=== PATIENT | male | born 1995 | race Caucasian/White ===

== ENCOUNTER 2016-03-27 17:12 | Emergency (ER) | payer BC ==
[2016-03-27] MEDS ORDERED: Ibuprofen TAB* 600 MG PO ONE (17:20)
[2016-03-27 17:23] VITALS: BP 121/67
--- NOTE | 2016-03-27 17:25 | UC ---
Shoulder Pain HPI - HPI Summary HPI Summary: Patient was snowboarding, fell and landed on left shoulder. ROM is limited due to pain - History of Current Complaint Stated Complaint: LT SHOULDER INJURY Time Seen by Provider: 03/27/16 17:20 Hx Obtained From: Patient Onset/Duration: Sudden Onset, Lasting Minutes - 60 Timing: Constant Severity Initially: Moderate Severity Currently: Moderate Location Of Pain: Is Discrete @ - right shoulder Character: Sharp, Spasmodic, Stiffness Aggravating Factor(s): Movement Alleviating Factor(s): Nothing - Allergies/Home Medications Allergies/Adverse Reactions: Allergies Allergy/AdvReac Type Severity Reaction Status Date / Time No Known Allergies Allergy Verified 03/27/16 17:23 Home Medications: Home Medications NK [No Home Medications Reported] 03/27/16 [History Confirmed 03/27/16] PMH/Surg Hx/FS Hx/Imm Hx Previously Healthy: Yes - Family History Family History: neg HTN or CAD Review of Systems Constitutional: Negative Skin: Negative Eyes: Negative ENT: Negative Respiratory: Negative Cardiovascular: Negative Gastrointestinal: Negative Genitourinary: Negative Motor: Negative Neurovascular: Negative Musculoskeletal: Arthralgia, Decreased ROM, Myalgia Neurological: Negative Psychological: Negative All Other Systems Reviewed And Are Negative: Yes Physical Exam Triage Information Reviewed: Yes Appearance: Well-Appearing, Well-Nourished, Pain Distress Vital Signs Reviewed: Yes Eye Exam: Normal Eyes: Positive: Conjunctiva Clear ENT Exam: Normal ENT: Positive: Normal ENT inspection, Pharynx normal, TMs normal Dental Exam: Normal Neck exam: Normal Neck: Positive: Supple, Nontender, No Lymphadenopathy Respiratory Exam: Normal Respiratory: Positive: Chest non-tender, Lungs clear, Normal breath sounds Cardiovascular Exam: Normal Cardiovascular: Positive: RRR, No Murmur, Pulses Normal Abdominal Exam: Normal Abdomen Description: Positive: Nontender, No Organomegaly, Soft Bowel Sounds: Positive: Present Musculoskeletal: Positive: Strength Limited @, ROM Limited @ - in left shoulder , Other: - noticeable step off deformity on left shoulder. tender over AC joint , sensation, color and movement of elbow wrist and fingers intact Neurological Exam: Normal Neurological: Positive: Alert Psychological Exam: Normal Skin Exam: Normal Shoulder Course/Dx - Course Course Of Treatment: hx obtained, exam performed, xray positive for AC joint separation, no fracture, no dislocation, ibuprofen given for pain with ogood results - Differential Dx/Diagnosis Differential Diagnosis/HQI/PQRI: Contusion, Dislocation, Sprain, Strain Provider Diagnoses: ac joint sprain. decreased ROM Discharge - Discharge Plan Condition: Stable Disposition: HOME Patient Education Materials: Acromioclavicular Separation (ED) Referrals: Bishop Meehan MD [Medical Doctor] - Additional Instructions: Use the sling to provide rest and support of the shoulder, continue with aleve or advil for pain, ice as needed to reduce pain and swelling. Follow up with Dr Meehan in his office right behind urgent care next week.
--- NOTE | 2016-03-27 17:47 | RAD ---
Indication: Fall to LEFT shoulder with dislocation. Pain and limited range of motion. Comparison: None. Technique: Internal and external rotation AP and scapular Y views LEFT shoulder Report: Increased transverse gap at the acromioclavicular joint measuring up to 0.7 cm. Top normal coracoclavicular distance. Normal glenohumeral joint alignment. Negative for fracture. Mild soft tissue swelling over the dorsum of the AC joint. IMPRESSION: AC joint separation with at least disruption of the acromioclavicular ligaments. Correlate with clinical assessment and consider bilateral exam with weights to assess for integrity of the coracoclavicular ligaments. Negative for fracture.
== END 2016-03-27 18:05 | disposition home or self-care (01) ==
LOC: UCCORT 17:12
DX: S43.52XA Sprain of left acromioclavicular joint, initial encounter (principal); V00.311A Fall from snowboard, initial encounter; Y93.23 Activity, snow (alpine) (downhill) skiing, snowboarding, sledding, tobogganing and snow tubing; Y92.9 Unspecified place or not applicable
CPT/HCPCS: 99203; A9270-GY; G0463